=== PATIENT | female | born 1950 | race Caucasian/White ===

== ENCOUNTER 2022-03-31 15:49 | Outpatient (CLI) | payer MEDICARE, SELFPAY ==
[2022-03-31 09:47] LABS: Hemoglobin A1C* 7.8 % (0-5.6)
[2022-03-31 14:33] LABS: Microalbumin Urine 1 mg/dL
[2022-03-31 14:34] LABS: Creatinine Urine 66.2 mg/dL; Microalbumin Creatinine Ratio 10 mg/g (0-30)
[2022-03-31 14:45] LABS: Chloride* 103 mmol/L (96-114); Potassium* 4.5 mmol/L (3.6-5.1); Sodium* 142 mmol/L (135-149)
[2022-03-31 14:47] LABS: Carbon Dioxide* 32 mmol/L (20-32); Cholesterol* 167 mg/dL (90-199); Creatinine* 0.7 mg/dL (0.5-1.5); Estimated Glomerular Filt Rate 92 ml/min
[2022-03-31 14:48] LABS: Alanine Aminotransferase* 17 U/L (4-35); Alkaline Phosphatase* 52 U/L (40-150); Aspartate Amino Transferase* 18 U/L (12-35); Bilirubin Total* 0.3 mg/dL (0.1-1.5); Blood Urea Nitrogen* 23 mg/dL (7-30); Calcium* 9.7 mg/dL (8.4-10.6); Glucose* 91 mg/dL (60-115); HDL Cholesterol* 34 mg/dL (>=50); LDL Cholesterol Calculated 106 mg/dL (<100); Total Protein* 6.5 g/dL (6.0-8.3); Triglycerides* 134 mg/dL (40-149)
== END 2022-03-31 15:50 | disposition home or self-care (01) ==
PROVIDERS: PCP Family Medicine; Visit Provider Family Medicine
DX: E11.9 Type 2 diabetes mellitus without complications (principal); I10 Essential (primary) hypertension; Z13.6 Encounter for screening for cardiovascular disorders
CPT/HCPCS: 80053; 80061; 82043; 82570; 83036

== ENCOUNTER 2022-11-05 13:36 | Outpatient (CLI) | payer MEDICARE, SELFPAY | END 2022-11-05 13:37 | disposition home or self-care (01) | LOC: RAD 13:40 | PROVIDERS: PCP Family Medicine; Visit Provider Family Medicine | DX: I71.21 Aneurysm of the ascending aorta, without rupture (principal); I07.1 Rheumatic tricuspid insufficiency; I51.7 Cardiomegaly; I35.1 Nonrheumatic aortic (valve) insufficiency | CPT/HCPCS: 93306 ==

== ENCOUNTER 2023-02-01 10:47 | Outpatient (CLI) | payer MEDICARE, SELFPAY | END 2023-02-01 10:48 | disposition home or self-care (01) | LOC: NFLDREF 02-02 11:49 | PROVIDERS: PCP Family Medicine; Referring Provider Family Medicine; Visit Provider Family Medicine | DX: E78.5 Hyperlipidemia, unspecified (principal); I10 Essential (primary) hypertension; E11.9 Type 2 diabetes mellitus without complications; B99.9 Unspecified infectious disease; K04.7 Periapical abscess without sinus | CPT/HCPCS: 80053; 80061 ==

== ENCOUNTER 2023-06-16 10:05 | Outpatient (CLI) | payer MEDICARE, SELFPAY | END 2023-06-16 10:06 | disposition home or self-care (01) | LOC: NFLDREF 06-17 05:48 | PROVIDERS: PCP Family Medicine; Referring Provider Family Medicine; Visit Provider Family Medicine | DX: E11.9 Type 2 diabetes mellitus without complications (principal); E78.5 Hyperlipidemia, unspecified; I10 Essential (primary) hypertension | CPT/HCPCS: 80053; 80076; 82043; 82570 ==

== ENCOUNTER 2024-04-20 15:46 | Outpatient (CLI) | payer MEDICARE, SELFPAY | END 2024-04-20 15:47 | disposition home or self-care (01) | PROVIDERS: PCP Family Medicine; Visit Provider Family Medicine | DX: I10 Essential (primary) hypertension (principal); R53.83 Other fatigue; E11.9 Type 2 diabetes mellitus without complications | CPT/HCPCS: 80048 ==

== ENCOUNTER 2024-09-07 11:00 | Outpatient (CLI) | payer MEDICARE, SELFPAY | END 2024-09-07 11:01 | disposition home or self-care (01) | LOC: NFLDREF 09-11 18:05 | PROVIDERS: PCP Family Medicine; Referring Provider Family Medicine; Visit Provider Family Medicine | DX: E11.65 Type 2 diabetes mellitus with hyperglycemia (principal); E78.5 Hyperlipidemia, unspecified; I10 Essential (primary) hypertension; Z79.4 Long term (current) use of insulin | CPT/HCPCS: 80053; 80061; 82043; 82570 ==

== ENCOUNTER 2025-05-14 13:46 | Outpatient (CLI) | payer MEDICARE, SELFPAY | END 2025-05-14 13:47 | disposition home or self-care (01) | PROVIDERS: PCP Family Medicine; Visit Provider Family Medicine | DX: E11.9 Type 2 diabetes mellitus without complications (principal); Z79.4 Long term (current) use of insulin; I10 Essential (primary) hypertension; E78.5 Hyperlipidemia, unspecified | CPT/HCPCS: 80048 ==